=== PATIENT | female | born 1995 | race Two or more races ===

== ENCOUNTER 2024-08-13 11:21 | Emergency (ER) | payer SELFPAY ==
[2024-08-13 11:23] VITALS: BP 110/66
--- NOTE | 2024-08-13 12:05 | ED.GENMED ---
History of Present Illness
<David Iverson MD, Resident - Last Filed: 08/14/24 09:10>
General
Chief Complaint: Throat Problem
Source: patient
Time Seen by Provider: 08/13/24 11:34
Travel History
Have you traveled to any high risk areas for coronavirus over the past 14 days?: No
Have you had any contact with someone who has COVID-19?: No
Do you have any symptoms of coronavirus? Fever > 100 degrees, chills, cough, shortness of breath, sore throat, loss of taste or smell, muscle aches, or headache?: No
History of Present Illness
History of Present Illness:
Samanta Heaton, age 29, has had a sore throat, odynophagia and fatigue for the past 2 weeks. She has also noted an exudative lesion that comes on intermittently since her symptoms began. Denies fever, chills, night sweats, throat swelling or
shortness of breath. She got tested for COVID-19, flu, strep throat, mono and throat culture at [place] last week, all of which were negative. She takes acetaminophen for pain control but has not taken any other medications.
Past History
<David Iverson MD, Resident - Last Filed: 08/14/24 09:10>
Past History
ED Past Medical History: None
ED Past Surgical History: None
Social History
Tobacco: Non-smoker
Alcohol: Occasional
Drug: None
Review of Systems
<David Iverson MD, Resident - Last Filed: 08/14/24 09:10>
Review of Systems
All Other Systems: Not applicable
Constitutional: Reports fatigue
EENT: Reports sore throat and other (discomfort in swallowing)
Respiratory: Reports no symptoms
Cardiac: Reports no symptoms
ABD/GI: Reports no symptoms
: Reports no symptoms
Musculoskeletal: Reports no symptoms
Skin: Reports no symptoms
Neurological: Reports no symptoms
Endocrine: Reports no symptoms
Hematologic/Lymphatic: Reports no symptoms
Psychiatric: Reports no symptoms
Phy Exam
<David Iverson MD, Resident - Last Filed: 08/14/24 09:10>
General Physical Exam
General Presentation: well appearing and no apparent distress
General Skin: warm and dry
General Habitus: normal
General Mental: alert
General Hydration: appears well hydrated
ENT Exam
ENT Exam: neck supple, normocephalic, pharyngeal erythema (mild) and other (no significant lymphadenopathy; no abnormal discharge or exudates; no uvula deviation)
Eye Exam
Eye Exam: PERRL, cornea clear and conjunctiva normal
Cardiovascular Exam
Cardiovascular Exam: regular rate/rhythm, no edema, no murmur and normal peripheral pulses
Pulmonary Exam
Pulmonary Exam: lungs clear, no respiratory distress, no rales, no crackles, no rhonchi, no stridor, no wheezing and no cough
Gastrointestinal Exam
Gastrointestinal Exam: normal bowel sounds, non tender, soft, no organomegaly, no pulsatile mass and non distended
Neurological Exam
Neurological Exam: alert, oriented x3, no motor deficits and speech normal
Musculoskeletal Exam
Musculoskeletal Exam: full ROM and no edema
Skin Exam
Skin Exam: normal color, warm/dry, no rash and no petechia
Psychiatric Exam
Psychiatric Exam: normal mood/affect
Course
<David Iverson MD, Resident - Last Filed: 08/14/24 09:10>
Orders/Labs/Results
Orders:
Orders
08/13/24 11:58
CT Neck With Iv Contrast Urgent
Comment:
Reason For Exam: persistent throat pain
08/13/24 11:59
Dexamethasone Sod Phosphate [Decadron] 10 mg IV NOW STA
Ketorolac [Toradol] 15 mg IV NOW STA
08/13/24 12:00
0.9% Sodium Chloride 1000 ml [Nss] 1,000 ml IV BOLUS
08/13/24 12:17
Basic Metabolic Panel Urgent
Complete Blood Count/With Diff Urgent
HCG, Serum Qualitative Screen Urgent
Comment: HCG QUAL ADDED ON BY FLOOR 1:30PM 08-13-24
Monotest Urgent
08/13/24 12:32
Add On - Microbiology Urgent
Comments:: HSV PCR
Tests Added?: fluid from throat vesicle
08/13/24 12:40
Herpes Simplex Vir Subtype PCR [S] Routine
Herpes Source: Vesicular Fluid
08/13/24 13:30
Add On- LAB Stat
Tests Added?: hcg qual
08/13/24 15:00
Amoxicillin 875 mg/Clav 125 mg [Augmentin 875 mg/125 mg] 1 tablet PO NOW STA
Abnormal Lab Results
08/13/24
12:17
MPV 10.9 H fL
(7.4-10.4)
Absolute Neuts (auto) 7.9 H 10^3/uL
(1.4-6.5)
Absolute Monos (auto) 0.7 H 10^3/uL
(0.1-0.6)
Neutrophils % 78.4 H %
(42.2-75.2)
Lymphocytes % 13.6 L %
(20.5-51.1)
08/13/24 12:17
08/13/24 12:17
Vital Signs
Initial and Last Documented VS:
Initial Vital Signs
Temp Pulse Resp BP Pulse Ox
97.9 F 77 16 110/66 100
08/13/24 11:23 08/13/24 11:23 08/13/24 11:23 08/13/24 11:23 08/13/24 11:23
Last Documented Vital Signs
Temp Pulse Resp BP Pulse Ox
97.9 F 78 16 102/68 99
08/13/24 11:23 08/13/24 15:12 08/13/24 15:12 08/13/24 15:12 08/13/24 15:12
<Hay Bee MD - Last Filed: 08/13/24 13:57>
Orders/Labs/Results
Orders:
Orders
08/13/24 11:58
CT Neck With Iv Contrast Urgent
Comment:
Reason For Exam: persistent throat pain
08/13/24 11:59
Dexamethasone Sod Phosphate [Decadron] 10 mg IV NOW STA
Ketorolac [Toradol] 15 mg IV NOW STA
08/13/24 12:00
0.9% Sodium Chloride 1000 ml [Nss] 1,000 ml IV BOLUS
08/13/24 12:17
Basic Metabolic Panel Urgent
Complete Blood Count/With Diff Urgent
HCG, Serum Qualitative Screen Urgent
Comment: HCG QUAL ADDED ON BY FLOOR 1:30PM 08-13-24
Monotest Urgent
08/13/24 12:32
Add On - Microbiology Urgent
Comments:: HSV PCR
Tests Added?: fluid from throat vesicle
08/13/24 12:40
Herpes Simplex Vir Subtype PCR [S] Routine
Herpes Source: Vesicular Fluid
08/13/24 13:30
Add On- LAB Stat
Tests Added?: hcg qual
08/13/24 15:00
Amoxicillin 875 mg/Clav 125 mg [Augmentin 875 mg/125 mg] 1 tablet PO NOW STA
Abnormal Lab Results
08/13/24
12:17
MPV 10.9 H fL
(7.4-10.4)
Absolute Neuts (auto) 7.9 H 10^3/uL
(1.4-6.5)
Absolute Monos (auto) 0.7 H 10^3/uL
(0.1-0.6)
Neutrophils % 78.4 H %
(42.2-75.2)
Lymphocytes % 13.6 L %
(20.5-51.1)
08/13/24 12:17
08/13/24 12:17
Vital Signs
Initial and Last Documented VS:
Initial Vital Signs
Temp Pulse Resp BP Pulse Ox
97.9 F 77 16 110/66 100
08/13/24 11:23 08/13/24 11:23 08/13/24 11:23 08/13/24 11:23 08/13/24 11:23
Last Documented Vital Signs
Temp Pulse Resp BP Pulse Ox
97.9 F 78 16 102/68 99
08/13/24 11:23 08/13/24 15:12 08/13/24 15:12 08/13/24 15:12 08/13/24 15:12
<David Iverson MD, Resident - Last Filed: 08/14/24 09:10>
*Critical Care Note
Total Time (30-74mins, 75-104mins- exclusive of procedures): Not Applicable
ED Attending Note
<David Iverson MD, Resident - Last Filed: 08/14/24 09:10>
-
Portions of this chart may have been created with voice recognition software.� Occasional wrong word or��sound alike� substitutions may have occurred due to the inherent limitations of voice recognition software.
<Hay Bee MD - Last Filed: 08/13/24 13:57>
ED Attending Note
Patient seen and examined by attending physician: Yes
I performed a history and physical exam of patient and discussed management with resident, I reviewed resident's note and agree with documented findings and plan of care.: Yes
ED Attending Note:
I have seen and evaluated the patient with a [id number] encounter. I have spoken to the resident and involved in the medical history, the physical exam, medical decision making.
Evaluation and management service: agree unless noted differently below.
Results interpretation: agree unless noted differently below.
Focused HPI: 29-year-old female with no chronic medical issues who presents to the ER for evaluation of throat pain. Patient reports she has been having ongoing sore throat for the past 2 weeks. Was seen in urgent care last week and had negative
strep, COVID, flu, Monospot. She was told it was likely viral but her symptoms that are improved. Came to the ER for assessment. She denies any trismus, pain with head movement. She denies any voice changes. She denies any fevers or chills.
She denies any trouble breathing or swallowing in the throat. She does disclose that prior to onset she had unprotected sex with a new partner and she says that this included oral sex. She was tested for STDs but did not have her throat swabbed.
She does note that she had a vesicle in her throat prior to onset of her symptoms.
Physical exam: Awake alert not in distress. No palpable cervical adenopathy. She has some injection/erythema in oropharynx but no vesicles or palatal petechiae. No tonsillar enlargement or exudate. Uvula is midline. She has no trismus. No
tongue elevation. Full range of motion of the neck.
Medical Decision Makin-year-old female presents with sore throat x 2 weeks. Recently negative strep, COVID, flu, mono. No fevers or systemic symptoms. She did have recent unprotected sex including oral sex. Will check CT neck to rule out
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 Repeat Monospot, will send swabs for GC from the throat as well as a swab for HSV. Hold on additional viral testing as it will be unlikely of acute clinical significance. Will treat with a steroid and
Toradol and likely empiric antibiotic treatment if no other readily identifiable infection identified.
Discharge Plan
Departure
Patient Disposition: Home (Routine Discharge)
Date of Disposition: 08/13/24
Time of Disposition: 14:55
Patient with high blood pressure during this ER visit?: No
Discharge Problem:
Acute tonsillitis
Instructions: Strep Throat (DC)
Prescriptions:
New
amoxicillin-pot clavulanate 875-125 mg tablet
1 tab PO BID 7 Days Qty: 14 0RF
Referrals:
Bulmaro Hemphill MD [Active] - Call in 1-3 days for appt (Please see ENT if not improving with ED treatment. )
Activity Restrictions/Additional Instructions:
Thank you for visiting the Emergency Department at [facility].
1. Please schedule a follow up appointment as directed. Call first thing tomorrow morning to make an appointment.
2. If indicated, please take your medications as instructed and indicated on discharge paperwork.
3. If any of your symptoms do not improve, or persist, or become more severe within 6-12 hours, please return to the emergency department for further care.
4. Please return to the emergency department if you develop a headache, neck pain/stiffness, fever greater than 100.4F, chest pain, shortness of breath, persistent nausea, vomiting, slurred speech, difficulty walking, numbness/tingling, weakness,
signs of infection or any other symptoms that are worrisome to you.
Please call [phone] if you have any questions.
Interventions
Interventions:
*Risk Screen - Suicide Last Done: 08/13/24 11:23
*General Assessment Last Done: 08/13/24 11:23
*Neglect/Abuse Screening Last Done: 08/13/24 11:23
*ED COVID-19 Vaccine History Last Done: 08/13/24 11:23
*Nursing Disposition Last Done: 08/13/24 15:12
ED-EENT Assessment Last Done: 08/13/24 12:21
ED- Pulmonary Assessment Last Done: 08/13/24 12:21
Discharge Date and Time
Discharge Date/Time: 08/13/24 15:13
Print Language: INDONESIAN
[2024-08-13 12:31] LABS: % Basophils 0.3 % (0-2); % Eosinophils 0.9 % (0-6); % Immature Granulocytes 0.3 % (0-0.5); % Lymphocytes 13.6 % (20.5-51.1); % Monocytes 6.5 % (1.7-9.3); % Neutrophils 78.4 % (42.2-75.2); Absolute Eosinophils 0.1 10^3/uL (0-0.7); Absolute Lymphocytes 1.4 10^3/uL (1.2-3.4); Absolute Monocytes 0.7 10^3/uL (0.1-0.6); Absolute Neutrophils 7.9 10^3/uL (1.4-6.5); Hematocrit 37.9 % (37.0-47.0); Hemoglobin 13.1 g/dL (12.0-16.0); Mean Corp Hgb Conc. 34.6 g/dL (33.0-37.0); Mean Corpuscular Hgb 30.5 pg (27.0-31.0); Mean Corpuscular Volume 88.1 fL (81.0-99.0); Mean Platelet Volume 10.9 fL (7.4-10.4); Nucleated Red Blood Cells % 0 %; Platelet Count 234 10^3/uL (130-400); Red Cell Dist. Width 13.3 % (11.5-14.5); White Blood Cell Count 10.1 10^3/uL (4.8-10.8)
[2024-08-13 12:42] LABS: Blood Urea Nitrogen 10 mg/dl (7-17); Calcium 9.9 mg/dl (8.4-10.2); Carbon Dioxide 28 mmol/L (22-30); Chloride 103 mmol/L (98-107); Glucose 96 mg/dl (70-99); Potassium 3.9 mmol/L (3.5-5.1); Sodium 143 mmol/L (135-145); eGFR > 60.00
[2024-08-13 13:00] LABS: Monotest Negative (Negative)
[2024-08-13] MEDS: DECADRON 10 MG IV (13:02)
[2024-08-13] MEDS: NSS 1000 IV (13:03)
[2024-08-13 14:02] LABS: HCG, Serum Qualitative Screen Negative
[2024-08-13] MEDS: AUGMENTIN 875 MG/125 MG 1 TABLET PO (15:08)
[2024-08-13 15:12] VITALS: BP 102/68
[2024-08-17 00:14] LABS: HSV 1 Subtype by PCR Not Detected; HSV 2 Subtype by PCR Not Detected; Herpes Simplex Source Vesicle
== END 2024-08-13 15:13 | disposition home or self-care (01) ==
LOC: EMR 11:21
PROVIDERS: EMERGENCY PHYSICIAN Emergency Medicine
DX: J03.90 Acute tonsillitis, unspecified (principal)
CPT/HCPCS: 99284; 96374; 96375; 96361; 70491; 80048; 84703; 85025; 86308; 87529; Q9967

== ENCOUNTER 2025-03-23 18:20 | Emergency (ER) | payer SELFPAY ==
[2025-03-23 18:22] VITALS: BP 106/61
--- NOTE | 2025-03-23 18:49 | ED.GENMED ---
History of Present Illness
General
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
Source: patient
Exam Limitations: none
Time Seen by Provider: 03/23/25 18:29
Nursing documentation reviewed up to this point in time: agreed with
History of Present Illness
History of Present Illness:
29-year-old female with no reported chronic medical issues presents to the ER for evaluation of vaginal discharge. Patient reports symptoms started about 2 weeks ago and have been constant since that time. She reports a thick whitish discharge
'like milk.' She says it has a foul odor. She denies any itching or pain. She denies any vaginal bleeding�last menstrual period was about 3 weeks ago and normal. She has not had any abdominal pain. She has not had any urinary symptoms. She
denies any fevers or chills. She says that she went to [facility] last week and was told it was a yeast infection and was treated with Diflucan; she says that this did not help. Came to the emergency room for evaluation. She says she has
not been sexually active for a few months. Incidentally, patient also asked for evaluation because she still has some mild pain in her throat after being positive for the flu 2 weeks ago. Denies any trismus, change in her voice, fevers, chills,
neck pain. She says it is generally improving but 'still annoying.'
Past History
Past History
ED Past Medical History: None
ED Past Surgical History: None
Social History
Tobacco: Non-smoker
Alcohol: Occasional
Drug: None
Review of Systems
Review of Systems
All Other Systems: ROS reviewed and negative except as documented in HPI and ROS
Constitutional: Denies fever or chills
EENT: Reports sore throat
Cardiac: Denies chest pain or palpitations
ABD/GI: Denies abdominal pain or vomiting
: Reports discharge; Denies dysuria, frequency, flank pain or bleeding
Musculoskeletal: Denies neck pain or back pain
Phy Exam
Physical Exam
Physical Exam:
General: Awake, alert, oriented x3; no acute distress
Head: Normocephalic, atraumatic
Eyes: Conjunctiva normal, EOMI
Ears: TMs clear bilaterally
Throat: Airway intact, handling secretions, midline uvula, no tonsillar erythema or exudate, no tongue elevation, no trismus
Neck: Trachea midline, supple without meningismus, no cervical adenopathy
Lungs: Breathing comfortably no distress
Heart: Regular rate
Abd: Soft, non distended, nontender with no palpable masses
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
tenderness, no adnexal tenderness
Neuro: No gross deficits
Extremities: Warm and well-perfused
Scores
Heart Failure Risk
Heart Failure Risk Score: Not Applicable
Heart Score for Chest Pain Patients
STEMI patient?: Not applicable
Withdrawal Assessment of Alcohol
Withdrawal Assessment Completed?: Not applicable
Course
Orders/Labs/Results
Orders:
Orders
03/23/25 18:39
Chlamydia/GC by PCR Urgent
KUMAR Source: Endo-Cervical
Specimen Description:
Source:: CERVIX
Trichomonas - Wet Prep Urgent
KUMAR Source: Vagina
Specimen Description:
Vital Signs
Initial and Last Documented VS:
Initial Vital Signs
Temp Pulse Resp BP Pulse Ox
36.9 C 67 16 106/61 99
03/23/25 18:22 03/23/25 18:22 03/23/25 18:22 03/23/25 18:22 03/23/25 18:22
Last Documented Vital Signs
Temp Pulse Resp BP Pulse Ox
36.9 C 67 16 106/61 99
03/23/25 18:22 03/23/25 18:22 03/23/25 18:22 03/23/25 18:22 03/23/25 18:22
MDM/Problems Addressed
Differential Diagnosis Includes:
Vaginal discharge: BV, gonorrhea/chlamydia, trichomonas, vaginal candidiasis, physiologic discharge
Sore throat: Tonsillitis, pharyngitis, nothing by history or on exam to suggest peritonsillar abscess
MDM/Problems Addressed:
29-year-old female presents for evaluation of vaginal discharge x 2 weeks. She says she has not been sexually active for a few months. She was treated for presumed yeast infection with Diflucan but this did not help. She describes thick whitish
discharge with foul odor, no pain, no bleeding. Physical exam as above. Swabs were taken and sent off for gonorrhea and chlamydia, wet prep. Suspect likely bacterial vaginosis. She denies being sexually active, will hold on empiric STI treatment
in favor of waiting for culture results for GC. Will plan to treat for bacterial vaginosis empirically. She has nothing on exam to suggest PID or TOA. Regarding her report of sore throat�she said she was positive for flu 2 weeks ago and has had
mild persistent sore throat�generally improving but 'still annoying.' She has no signs of MEDIA CLERK and in fact her exam is essentially normal. Suspect some residual tonsillitis from viral illness, advised for supportive measures and expectant
management.
*Pulse Oximetry
Patient hypoxic: no
*Critical Care Note
Total Time (30-74mins, 75-104mins- exclusive of procedures): Not Applicable
Data Reviewed
Source: patient
ED Attending Note
-
Portions of this chart may have been created with voice recognition software.� Occasional wrong word or��sound alike� substitutions may have occurred due to the inherent limitations of voice recognition software.
Discharge Plan
Departure
Patient with high blood pressure during this ER visit?: No
Discharge Problem:
Vaginal discharge
Instructions: Bacterial vaginosis - ED discharge instructions
Prescriptions:
New
metronidazole 500 mg tablet
500 mg PO BID 7 Days Qty: 14 0RF
No Action
amoxicillin-pot clavulanate 875-125 mg tablet
1 tab PO BID 7 Days Qty: 14 0RF
Activity Restrictions/Additional Instructions:
Thank you for visiting the Emergency Department at [facility].
1. Please schedule a follow up appointment as directed. Call first thing tomorrow morning to make an appointment.
2. If indicated, please take your medications as instructed and indicated on discharge paperwork.
3. If any of your symptoms do not improve, or persist, or become more severe within 6-12 hours, please return to the emergency department for further care.
4. Please return to the emergency department if you develop a headache, neck pain/stiffness, fever greater than 100.4F, chest pain, shortness of breath, persistent nausea, vomiting, slurred speech, difficulty walking, numbness/tingling, weakness,
signs of infection or any other symptoms that are worrisome to you.
Please call [phone] if you have any questions.
Interventions
Interventions:
*Risk Screen - Suicide Last Done: 03/23/25 18:22
*Neglect/Abuse Screening Last Done: 03/23/25 18:22
Discharge Date and Time
Print Language: GUINEAN
[2025-03-23 19:15] LABS: HCG, Urine Qualitative Screen Negative
[2025-03-23] MEDS: FLAGYL 500 MG PO (19:35)
[2025-03-23 19:36] VITALS: BP 104/62
== END 2025-03-23 19:41 | disposition home or self-care (01) ==
LOC: EMR 18:20
PROVIDERS: EMERGENCY PHYSICIAN Emergency Medicine
DX: N89.8 Other specified noninflammatory disorders of vagina (principal); R07.0 Pain in throat; Z88.5 Allergy status to narcotic agent
CPT/HCPCS: 99283; 81025; 87210; 87491; 87591

== ENCOUNTER 2025-09-16 23:05 | Emergency (ER) | payer SELFPAY ==
[2025-09-16 23:06] VITALS: BP 110/69
[2025-09-16 23:20] VITALS: BP 105/67
--- NOTE | 2025-09-16 23:30 | ED.GENMED ---
History of Present Illness
<Venancio Heller MD, Resident - Last Filed: 09/17/25 00:55>
General
Chief Complaint: Throat Problem
Source: patient
Time Seen by Provider: 09/16/25 23:16
History of Present Illness
History of Present Illness:
Patient is a 30-year-old female with no PMH who presents to the [facility] ED for 2 days of progressive throat pain, which is now an 8/10 intensity, present at rest, and worse with swallowing. Associated symptoms include nausea and mild headache.
No associated shortness of breath, cough, chest pain, vomiting, diarrhea, fever, fatigue, or chills. No recent illnesses or sick contacts. No swelling in her neck.
Past History
<Venancio Heller MD, Resident - Last Filed: 09/17/25 00:55>
Past History
ED Past Medical History: None
ED Past Surgical History: None
Social History
Tobacco: Non-smoker
Alcohol: Occasional
Drug: None
Review of Systems
<Venancio Heller MD, Resident - Last Filed: 09/17/25 00:55>
Review of Systems
Constitutional: Denies fever, weight loss, fatigue or chills
Respiratory: Denies cough or trouble breathing
Cardiac: Denies chest pain
ABD/GI: Reports nausea; Denies abdominal pain, vomiting or diarrhea
Neurological: Reports headache (Mild)
Phy Exam
<Venancio Heller MD, Resident - Last Filed: 09/17/25 00:55>
Physical Exam
Physical Exam:
General: NAD. Well-appearing.
HEENT: Small tonsillar exudate present. No drooling or pooling of oral secretions. No cervical lymphadenopathy. EACs clear, nonerythematous bilaterally. No hoarseness.
CV: RRR. S1, S2 noted. No M/R/G.
Pulm: CTAB. No stridor. No wheezes or crackles. No cyanosis. Normal work of breathing.
GI: Soft, nontender. Nondistended. No splenomegaly.
Neuro: A&O x 3. No focal deficits. CN II through XII grossly intact.
Course
<Venancio Heller MD, Resident - Last Filed: 09/17/25 00:55>
Orders/Labs/Results
Orders:
Orders
09/16/25 23:59
Rapid Strep Group A Urgent
KUMAR Source: Throat/Pharynx
Specimen Description:
Date Specimen was Collected: 09/17/25
Time Specimen was Collected: 00:04
Vital Signs
Initial and Last Documented VS:
Initial Vital Signs
Temp Pulse Resp BP Pulse Ox
98.4 F 80 16 110/69 100
09/16/25 23:06 09/16/25 23:06 09/16/25 23:06 09/16/25 23:06 09/16/25 23:06
Last Documented Vital Signs
Temp Pulse Resp BP Pulse Ox
98.4 F 72 22 103/69 100
09/16/25 23:06 09/17/25 00:00 09/17/25 00:00 09/17/25 00:00 09/16/25 23:45
<Reyes Craig, DO - Last Filed: 09/17/25 00:03>
Orders/Labs/Results
Orders:
Orders
09/16/25 23:59
Rapid Strep Group A Urgent
KUMAR Source: Throat/Pharynx
Specimen Description:
Date Specimen was Collected: 09/17/25
Time Specimen was Collected: 00:04
Vital Signs
Initial and Last Documented VS:
Initial Vital Signs
Temp Pulse Resp BP Pulse Ox
98.4 F 80 16 110/69 100
09/16/25 23:06 09/16/25 23:06 09/16/25 23:06 09/16/25 23:06 09/16/25 23:06
Last Documented Vital Signs
Temp Pulse Resp BP Pulse Ox
98.4 F 72 22 103/69 100
09/16/25 23:06 09/17/25 00:00 09/17/25 00:00 09/17/25 00:00 09/16/25 23:45
<Venancio Heller MD, Resident - Last Filed: 09/17/25 00:55>
MDM/Problems Addressed
MDM/Problems Addressed:
Assessment: Patient is a 30-year-old female with no PMH who presents with 2 days of progressive throat pain, worse with swallowing, and associated with nausea and mild headache. Physical exam reveals no cervical lymphadenopathy, oropharyngeal
erythema, edema, or exudate, drooling, pooling of oral secretions, or splenomegaly. AFVSS, no systemic symptoms. Centor score 2. Rapid strep antigen test negative. Suspect viral pharyngitis. Low suspicion for EBV related pharyngitis given lack
of fever, fatigue, lymphadenopathy, or palpable splenomegaly.
Plan:
#Throat pain
Rapid strep antigen test: Negative
Recommend oral hydration and pain control with OTC medications (e.g., Tylenol, ibuprofen)
Recommend close follow-up with PCP in the outpatient setting
<Venancio Heller MD, Resident - Last Filed: 09/17/25 00:55>
*Pulse Oximetry
SaO2: 100
Oxygen Mode of Delivery: Room air
Patient hypoxic: no
*Critical Care Note
Total Time (30-74mins, 75-104mins- exclusive of procedures): Not Applicable
ED Attending Note
<Venancio Heller MD, Resident - Last Filed: 09/17/25 00:55>
-
Portions of this chart may have been created with voice recognition software.� Occasional wrong word or��sound alike� substitutions may have occurred due to the inherent limitations of voice recognition software.
<Reyes Finnladenhaufen, DO - Last Filed: 09/17/25 00:03>
ED Attending Note
Patient seen and examined by attending physician: Yes
I performed a history and physical exam of patient and discussed management with resident, I reviewed resident's note and agree with documented findings and plan of care.: Yes
ED Attending Note:
I evaluated the patient at bedside, the patient has some mild erythema and mild exudate on exam, she is afebrile and otherwise well-appearing, she declines analgesia, no evidence of PIGGERY WORKER on exam
Discharge Plan
Departure
Patient Disposition: Home (Routine Discharge)
Date of Disposition: 09/17/25
Time of Disposition: 00:49
Patient with high blood pressure during this ER visit?: No
Condition: Good
Covid-19: Not Applicable
Discharge Problem:
Pharyngitis
Instructions: Sore throat in adults - ED (DC)
Prescriptions:
No Action
amoxicillin-pot clavulanate 875-125 mg tablet
1 tab PO BID 7 Days Qty: 14 0RF
metronidazole 500 mg tablet
500 mg PO BID 7 Days Qty: 14 0RF
Referrals:
NONE,* [Family Provider, Internal Medicine]
Activity Restrictions/Additional Instructions:
Recommend oral hydration and pain control with [id number] medications (e.g., Tylenol, ibuprofen)
Recommend close follow-up with PCP in the outpatient setting
Interventions
Interventions:
*Risk Screen - Suicide Last Done: 09/16/25 23:08
*General Assessment Last Done: 09/16/25 23:08
*Neglect/Abuse Screening Last Done: 09/16/25 23:08
*ED COVID-19 Vaccine History Last Done: 09/16/25 23:08
*ED Influenza Vaccine History Last Done: 09/16/25 23:08
ED-EENT Assessment Last Done: 09/16/25 23:25
ED- Pulmonary Assessment Last Done: 09/16/25 23:25
Discharge Date and Time
Print Language: TOGOLESE
[2025-09-17] VITALS: BP 103/69
== END 2025-09-17 01:11 | disposition home or self-care (01) ==
LOC: EMR 23:05
PROVIDERS: EMERGENCY PHYSICIAN Emergency Medicine
DX: J02.9 Acute pharyngitis, unspecified (principal)
CPT/HCPCS: 99282; 87070; 87880